=== PATIENT | female | born 1995 | race Caucasian/White ===

== ENCOUNTER 2024-09-27 09:03 | Observation (INO) | payer MEDICAID, SELFPAY ==
[2024-09-27 09:23] VITALS: BP 106/65; PULSE 88
--- NOTE | 2024-09-27 09:45 | XR_ITS ---
Examination: OB Transvaginal ultrasound of the pelvis, Limited Technique: Transvaginal sonographic images pelvis performed using santos scale imaging Exam date and time: September 27, 2024 1051 hours INDICATIONS: Labor evaluation, unknown cervical length FINDINGS: Cervix 3.7 cm closed IMPRESSION: Cervix 3.7 cm closed.
[2024-09-27 09:46] VITALS: BP 106/65; PULSE 88; RESP 16; RESP 96; TEMP 36.4; O2SAT 96; BMI 33.5
--- NOTE | 2024-09-27 11:58 | PC.NURSE ---
Dr Martinez at bedside, speculum exam, amniosure collected and sent, bedside us for marta.
[2024-09-27 12:02] LABS: ROM Kit Lot # 57809118; ROM Swab Mixed By: HILEL; Rupture of Fetal Membranes Negative (Negative); Swb Mxed in Solvent 1 min? Yes
--- NOTE | 2024-09-27 12:16 | PD.LDPN ---
Documentation for date of: 09/27/24 OB Labor Progress Note Assessment and Plan Comments: Triage Note Alyx is a 29yo with SIUP at 32+wk presenting to L&D for slight spotting x2 this morning with wiping. No bright blood, just a faint tinge. She notes no painful/regular ctx, no overt vaginal bleeding. No gross loss of fluid. Normal movement. Current : This is complicated by heart defect for which she sees MFM, pediatric cardiology, and her OBGYN. She also has pre-existing diabetes for which she takes insulin and metformin- she notes sugars have overall been well controlled. She has history of prior section for macrosomia. ROS negative other than what was described above. Vitals wnl, afebrile General: well developed, well nourished, no acute distress, conversant Cardiac: normal heart rate Lungs: breathing without distress Abdomen: soft, gravid, non-tender, no rebound or guarding Extremities: no pain with palpation of calves SSE by Dr. Martinez: NEFG, vaginal discharge is a bit thinner than usual so AmniSure collected. No obvious pooling. Cervix thick/closed. No blood in vaginal vault. NST: Reactive, +accels, no decels, mod [place]: no ctx pattern Bedside ultrasound performed by Dr. Martinez: SIUP with breech presentation ( head in maternal RUQ), +FCA, active FM, posterior placenta, ERIKA 12cm Labs: AmniSure ROM Test: Negative Radiology: Formal transvaginal cervical length: 3.7cm Assessment: Alyx is a 29yo with SIUP at 32+wk with no evidence of PPROM, labor or cervical shortening. Vitals wnl, benign exam. Reassuring status. Plan: -Discussed findings and diagnosis with patient and support person, answered all questions to their apparent satisfaction -Continue routine follow up with OBGYN within 1 week -Discussed return precautions at length. Specifically discussed that if she feels leakage again when she goes home, to place a panty liner or pad on and walk around. If she begins soaking into the liner/pad, she should return. Leslie Martinez MD
== END 2024-09-27 12:15 | disposition home or self-care (01) ==
PROVIDERS: Admitting Provider Obstetrics & Gynecology; PCP Family Medicine; Visit Provider Obstetrics & Gynecology
DX: O26.853 Spotting complicating pregnancy, third trimester (principal); Z3A.32 32 weeks gestation of pregnancy
CPT/HCPCS: 59025; 59899; 76817; 84112

== ENCOUNTER 2024-10-28 10:15 | Observation (INO) | payer MEDICAID, SELFPAY ==
[2024-10-28] VITALS (47 sets, daily range): BP systolic 93–123; BP diastolic 56–88; PULSE 81–163; RESP 18–99; TEMP 36.4; O2SAT 76–99; BMI 33.4
[2024-10-28] MEDS: SODIUM CHLORIDE 0.9% 1000 ML 1,000 ML 999 ML IV (11:03)
[2024-10-28] MEDS: NIFEdipine 10 MG CAPSULE 20 MG PO (11:58)
[2024-10-28 12:08] LABS: Collection Type, Urine Clean Catch
[2024-10-28 13:10] LABS: Bacteria,Urine 3+; Bilirubin,Urine Negative (Negative); Blood,Urine Negative (Negative); Clarity,Urine Turbid (Clear/Hazy); Color,Urine Yellow (Lt Yel-Yel); Glucose, Urine Negative (Negative); Ketones,Urine 2+ (Negative); Leukocyte Esterase,Urine Positive (Negative); Nitrite,Urine Positive (Negative); Protein,Urine Trace (Neg - Trace); RBC,Urine 3 /hpf (0-3); Specific Gravity,Urine 1.024 (1.001-1.035); Squamous Epithelial Cell,Urine 16 /hpf (0-5); Urobilinogen,Urine Negative mg/dL (0.0-1.0); WBC,Urine 4 /hpf (0-5)
[2024-10-28] MEDS: Magnesium Sulfate 4 GM Ivpb 4 GM/50 ML BAG IV (13:57)
[2024-10-28] MEDS: ceFAZolin/D5W 2 GM IV 2 GM/100 ML BAG IV (14:04)
--- NOTE | 2024-10-28 14:10 | XR_ITS ---
Examination: age Limited Technique: Limited transabdominal sonographic images pelvis Exam date and time: October 28, 2024 1443 hrs. Indications: Vomiting diarrhea beginning 3 days ago, pelvic contractions beginning 7:00 AM Findings: Viable intrauterine gestation cephalic presentation spine maternal left Amniotic fluid index 22.3 cm Cardiac motion 153 BPM Estimated weight 3114 g Estimated age 37 weeks 0 days Impression: Viable intrauterine gestation cephalic presentation
[2024-10-28] MEDS: MAGNESIUM SULF 20 GM IVPB 20 GM/500 ML BAG IV ×2 (14:33→15:14)
[2024-10-28 14:34] LABS: Basophils % (Auto) 0 % (0-2.5); Eosinophils % (Auto) 0 % (0-10); Hematocrit 39.6 % (36.0-46.0); Immature Granulocytes % (Auto) 1 % (0-0); Immature Granulocytes Auto 0.06 Thou/mm3 (0.00-0.00); Lymphocytes # (Auto) 1.8 Thou/mm3 (1.0-4.8); Lymphocytes % (Auto) 14 % (10-50); Mean Corpuscular HGB Conc 35.4 g/dl (31.0-37.0); Mean Corpuscular Volume 82 fL (80-100); Monocytes # (Auto) 0.4 Thou/mm3 (0.0-0.8); Monocytes % (Auto) 3 % (0-12); Neutrophils # (Auto) 10.4 Thou/mm3 (1.8-7.7); Neutrophils % (Auto) 82 % (37-80); Nucleated Red Blood Cell % 0 /100 WBC (0); Platelet Count 215 Thou/mm3 (140-440); RDW Standard Deviation 40.2 fL (36.4-46.3); Red Blood Count 4.82 Miln/mm3 (4.00-5.20); White Blood Count 12.7 Thou/mm3 (3.6-11.0)
[2024-10-28 14:49] LABS: Alanine Aminotransferase 24 U/L (10-49); Albumin, Serum 3.6 gm/dL (3.5-5.0); Albumin/Globulin Ratio 1.5 (1.2-2.2); Alkaline Phosphatase 132 U/L (46-116); Anion Gap 13 (7-16); Aspartate Amino Transferase 30 U/L (0-34); BUN/Creatinine Ratio 20 Ratio (12-20); Bilirubin,Total 0.6 mg/dL (0.3-1.2); Blood Urea Nitrogen 10 mg/dL (9-23); Calcium 8.4 mg/dL (8.3-10.6); Calcium (Corrected) 8.7 mg/dL (8.5-10.1); Carbon Dioxide 17.7 mMol/L (20.0-31.0); Chloride 105 mMol/L (98-107); Creatinine (Component) 0.5 mg/dL (0.6-1.3); Estimated Creatinine Clearance 188.2 mL/min (>60); Globulin 2.4 gm/dL (2.3-3.5); Glucose 124 mg/dL (74-106); Magnesium 3.3 mg/dL (1.6-2.6); Osmolality,Calculated 271 (275-295); Potassium 3.7 mMol/L (3.4-5.1); Sodium 136 mMol/L (136-145); eGFR > 60 See Note
[2024-10-28] MEDS: ONDANSETRON INJ 2 MG/ML INJ 2 ML 4 MG IV (14:57)
--- NOTE | 2024-10-28 15:00 | ESDS_ITS ---
Transfer Discharge Sum: Prov Provider Date of admission: 10/28/24 10:15 Primary care physician: López Warner MD Admitting clinician: Marni Haque Consults: consulted Dr Maritza Shin at [facility] for transfer to [facility] due to cardiac anomalies needing higher level NICU Care Attending physician on discharge: Marni Haque Discharging clinician: Marni Haque Anticipated date of transfer: 10/28/24 Receiving physician/facility: Dr Ortega/ Dr Maritza Shin /[facility]/ [place] DS: Diagnosis Discharge Diagnosis (1) Prolonged latent phase of labor: Status: Acute Assessment & Plan: patient has close cervix and mild contractions and started on Magnesium sulphate for transfer (2) 36 to 37 weeks gestation of : Status: Acute Assessment & Plan: transfer for higher level care to [facility] in case of possible delivery (3) Pregestational diabetes mellitus, modified White class C: Status: Acute Assessment & Plan: patient on 10 units NPH and 5 units Regular insulin q am (4) cardiac anomaly complicating , antepartum: Status: Acute (5) Previous delivery affecting , antepartum: Status: Acute Problem List Completed Was Problem List Reviewed/Reconciled?: Yes Transfer Discharge Sum: Hosp Hospital Course Hospital course: Ms. EDGE is a 29 year old female Time Spent with Patient Time attestation: Total time spent providing and/or coordinating transfer services: Exam Vital Signs Temp Pulse Resp BP Pulse Ox 97.5 F 86 18 115/74 97 10/28/24 10:52 10/28/24 14:46 10/28/24 10:52 10/28/24 14:46 10/28/24 14:59 Transfer Discharge Sum: Data Data Completed and Pending Completed studies during hospitalization: Procedures Extraction of Products of Conception, Low, Open Approach (02/15/20) Introduction of Anesthetic Agent into Spinal Canal, Percutaneous Approach (02/15/20) Monitoring of Products of Conception, Cardiac Rate, External Approach (02/15/20) Impressions Impressions: Latent labor but h/o early deliveries at 37 weeks H/o pregest DM h/o previous c section current with cardiac anomalies /recommendd delivery at tertiary care center Additional Comments Additional comments: stable for transfer benfits of transfer are > risk Discharge Plan Problem List Was Problem List Reviewed/Reconciled?: Yes Plan Patient Disposition: Xfer Acute Care [facility] Facility Pt Being Transferred to: [facility] Service Needed for Transfer: Obstetrics Disposition Comment: stable for transfer Patient condition on transfer: Stable and Benefits outweigh risks Prescriptions/Referrals Prescriptions/Med Rec: No Action insulin regular human 100 unit/mL Solution 5 unit SUBCUT QAM insulin NPH isoph U-100 human 100 unit/mL Suspension 10 unit SUBCUT QAM Vitamin 27 mg iron- 0.8 mg Tablet 1 tab PO QDAY Referrals: López Warner MD [Primary Care Provider] - Patient/Caregiver Discharge Instructions Other Discharge Activity Instructions:: transfer with Iv magnesium sulphate 2 grams/hour Other Discharge Diet Instructions: NPO Print Language: [place] Stand Alone Forms: Eva Award Info., Patient Portal Info Letter Discharge Order Discharge Orders: Discharge (Routine); Ordered 10/28/24 Ordered By: Marni Haque
[2024-10-28 15:12] LABS: Glucose Estimated Average 229 mg/dL (80-131); Hemoglobin A1C 9.6 % Hgb (4.8-6.0)
[2024-10-28 16:13] LABS: Magnesium 3.4 mg/dL (1.6-2.6)
--- NOTE | 2024-10-28 17:04 | PC.NURSE ---
1532 CALL MADE TO [facility] , SBAR REPORT GIVEN TO Noman at 1540.
== END 2024-10-28 16:50 | disposition short-term general hospital (02) ==
PROVIDERS: Admitting Provider Obstetrics & Gynecology; PCP Family Medicine; Visit Provider Obstetrics & Gynecology
DX: O24.313 Unspecified pre-existing diabetes mellitus in pregnancy, third trimester (principal); O47.1 False labor at or after 37 completed weeks of gestation; O35.BXX0 Maternal care for other (suspected) fetal abnormality and damage, fetal cardiac anomalies, not applicable or unspecified; O34.219 Maternal care for unspecified type scar from previous cesarean delivery; Z3A.37 37 weeks gestation of pregnancy; E11.9 Type 2 diabetes mellitus without complications; Z79.4 Long term (current) use of insulin
CPT/HCPCS: 36415; 59899; 76815; 80053; 81001; 83036; 83735; 85025; 96374; J0689; J2405; J3475; J7030; A9270

== ENCOUNTER 2024-11-15 17:39 | Emergency (ER) | payer MEDICAID, SELFPAY ==
[2024-11-15 17:50] VITALS: BP 117/78; PULSE 81; RESP 20; TEMP 36.7; O2SAT 100
--- NOTE | 2024-11-15 17:58 | PD.EDADULT ---
ED General RME/HPI General Chief complaint: General Adult/Misc Complain Stated complaint: C. SECTION 8 DAYS AGO, INCISION RED/OPENING/PINEDA Time Seen by Provider: 11/15/24 17:42 Source: patient Arrival date/time: 11/15/24 17:39 29-year-old female with no known medical history presents to the emergency room with a chief complaint of erythema and drainage to the scar. Patient states she recently had a 8 days ago. Mode of arrival: ambulatory Limitations: no limitations Related Data Home Medications ?Medication ?Instructions ?Recorded ?Confirmed insulin NPH isoph U-100 human 100 10 unit subcut QAM 01/02/20 10/28/24 unit/mL subcutaneous suspension insulin regular human 100 unit/mL 5 unit subcut [facility] 01/02/20 10/28/24 injection solution vitamins-iron fumarate 27 1 tab PO QDAY 01/02/20 10/28/24 mg iron-folic acid 0.8 mg tablet ( Vitamin) Previous Rx's ?Medication ?Instructions ?Recorded cephalexin 500 mg capsule 500 mg PO BID 7 days #14 caps 11/15/24 Allergies Allergy/AdvReac Type Severity Reaction Status Date / Time No Known Allergies Allergy Verified 11/15/24 17:43 Review of Systems Review of Systems Systems Reviewed: All systems reviewed, normal except as documented Constitutional Constitutional: Reports system reviewed and no additional complaints, except as documented, Denies fatigue, Denies fever(s), Denies headache(s) and Denies weakness Eyes Eyes: Reports system reviewed and no additional complaints, except as documented, Denies blurry vision and Denies change in vision ENT Ears, Nose, Mouth, and Throat: Reports system reviewed and no additional complaints, except as documented, Denies otalgia, Denies headache(s), Denies nasal congestion, Denies throat swelling and Denies vertigo Cardiovascular Cardiovascular: Reports system reviewed and no additional complaints, except as documented, Denies chest pain, Denies dyspnea and Denies dyspnea on exertion Respiratory Respiratory: Reports system reviewed and no additional complaints, except as documented, Denies chest congestion, Denies cough, Denies dyspnea, Denies dyspnea on exertion and Denies wheezing Gastrointestinal Gastrointestinal: Reports system reviewed and no additional complaints, except as documented, Denies abdominal pain, Denies cramping, Denies nausea and Denies vomiting Genitourinary Genitourinary: Reports system reviewed and no additional complaints, except as documented Musculoskeletal Musculoskeletal: Reports system reviewed and no additional complaints, except as documented and Denies back pain Integumentary/Breasts Skin/Breast: Reports system reviewed and no additional complaints, except as documented and Reports wounds Neurologic Neurologic: Reports system reviewed and no additional complaints, except as documented, Denies confusion, Denies headache(s), Denies lack of coordination, Denies vertigo and Denies weakness Psychiatric Psychiatric: Reports system reviewed and no additional complaints, except as documented, Denies anxiety, Denies confusion, Denies depression, Denies paranoia, Denies suicidal ideation and Denies tactile hallucinations Endocrine Endocrine: Reports system reviewed and no additional complaints, except as documented and Denies fatigue Hematologic/Lymphatic Hematologic/Lymphatic: Reports system reviewed and no additional complaints, except as documented and Denies lymphadenopathy Allergic/Immunologic Allergic/Immunologic: Reports system reviewed and no additional complaints, except as documented, Denies throat swelling, Denies urticaria and Denies wheezing Past Medical History Past Medical History NEUROLOGIC: Negative Neurological Disorders or Seizures CARDIAC: Negative Cardiac Disorders, Congestive Heart Failure or Hypertension RESPIRATORY: Negative Chronic Obstructive Pulmonary Disease (COPD) or Asthma GASTROINTESTINAL: Negative Gastrointestinal Disorders or Hepatitis GENITOURINARY: Negative Genitourinary Disorders or Renal Disease MUSCULOSKELETAL: Negative Musculoskeletal Disorders ENDOCRINE: Positive Endocrine Disorders and Diabetes Mellitus Type 2; Negative Diabetes Mellitus Type 1 HEMATOLOGIC: Negative Blood Disorders or Sickle Cell Disease OTHER HISTORY: Positive Hospitalization; Negative Autoimmune Disease, Shingles, Blood Transfusions, Anesthesia Reactions, MRSA, VRSA, Vancomycin-Resistant Enterococci, Human Immunodeficiency Virus (HIV), Chicken Pox, Measles, Mumps, Rubella (Sinhala Measles), Pertussis, Clostridium Difficile or Cancer Family History FAMILY HISTORY: Positive Family Cancer and Family Surgery; Negative Family Psychiatric Problems, Family Respiratory Disorders, Family Cardiac Disorders, Family Gastrointestinal Problems or Family Anesthesia Reaction Surgical History SURGICAL: Positive Tonsillectomy; Negative Cardiac Surgery Social History SMOKING STATUS: Never smoker SECOND HAND EXPOSURE: No ED Exam General Limitations: Present no limitations General appearance: Present alert and in no apparent distress Head Head exam: Present atraumatic Eye Eye exam: Present normal appearance, PERRL and EOMI ENT ENT exam: Present normal exam, normal oropharynx and mucous membranes moist Neck Neck exam: Present normal inspection, full ROM and trachea midline Chest Chest inspection: Present normal inspection and symmetric chest wall rise Respiratory Respiratory exam: Present normal lung sounds bilaterally Cardiovascular Cardiovascular exam: Present regular rate, normal rhythm and normal heart sounds Abdominal Exam Abdominal exam: Present soft, tenderness, normal bowel sounds and scar Extremities Exam Extremities exam: Present normal inspection and full ROM Back Exam Back exam: Present normal inspection and full ROM Neurological Exam Neurological exam: Present alert, oriented X3 and CN II-XII intact Psychiatric Psychiatric exam: Present normal affect and normal mood Skin Skin exam: Present warm, dry, intact and normal color Expanded Skin Exam Description: Present erythematous; Absent swelling or discharge Body image:  1. There is erythema and very mild warmth to the area. It is to the center of the scar. There is no pus or any opening to the scar. Course Quality Measures none Vital Signs Vital signs: Vital Signs Temperature 98.0 F 11/15/24 17:50 Pulse Rate 81 11/15/24 17:50 Respiratory Rate 20 11/15/24 17:50 Blood Pressure 117/78 11/15/24 17:50 Pulse Oximetry (%) 100 11/15/24 17:50 Oxygen Delivery Method Room Air 11/15/24 17:50 O2 saturation 100% within normal limits MDM Patient data External records reviewed:: [facility] previous records Clinical information provided by:: patient Social determinants that could affect healthcare access:: none Patient has the following chronic illnesses:: No chronic illness How is presenting disease/condition affected by chronic disease/condition?: no chronic disease Evaluation data The following diagnostics were reviewed and interpreted by me:: lab results and radiology exam(s) Lab and/or radiology exams considered but not ordered:: Labs and radiology exams considered and ordered Interpretation Summary: N/A Medications Medications considered but not ordered:: Rx given Medication administrations:: Rx given Consultations Consultation(s) initiated? (list below): No Diagnosis Differential Diagnosis ED Complaint MDM: Cellulitis/ effusion Most likely diagnosis given after review of the tests above:: Cellulitis Admission Indicated Admission indicated?: not indicated Explain why admission is indicated or not indicated:: N/A Admission Request Was there a request for admission?: No Disposition Plan Disposition Plan: Discharge Discharge Attestation Discharge Attestation: The patient and all family members were given an opportunity to ask questions and understood the discharge instructions. Discharge instructions specifically effects, indications for sooner follow up or return to the emergency department, and the expected course of current diagnosis. Patient condition: Stable Medical Decision Making MDM Narrative MDM Narrative: 29-year-old female with no known medical history presents to the emergency room with a chief complaint of erythema and drainage to the scar. Patient states she recently had a 8 days ago. Patient is hemodynamically stable and in no apparent distress. There is no tachycardia no tachypnea and no fever Antibiotics are sent to the patient's pharmacy for cellulitis. There is no drainage and there is just some mild erythema. Antibiotics are sent to the patient's pharmacy Patient was discharged and educated to follow-up with primary care provider in the next 24 to 48 hours and return to the emergency room for any evidence of worsening signs or symptoms Differential Diagnosis Differential Diagnosis: Cellulitis/ effusion Discharge Plan Plan Patient Disposition: HOME (Self Care) Disposition Comment: Stable Prescriptions/Referrals Prescriptions/Med Rec: New cephalexin 500 mg capsule 500 mg PO BID 7 Days Qty: 14 0RF No Action insulin regular human 100 unit/mL Solution 5 unit SUBCUT QAM insulin NPH isoph U-100 human 100 unit/mL Suspension 10 unit SUBCUT QAM Vitamin 27 mg iron- 0.8 mg Tablet 1 tab PO QDAY Problem List Clinical Impression: Cellulitis Patient/Caregiver Discharge Instructions Education Materials: Discharge Instructions for Cellulitis, ED Cellulitis Additional Instructions: Please follow-up with your primary care provider in the next 24 to 48 hours. Antibiotics are sent to your pharmacy please pick them up and take them as indicated. These antibiotics are safe to give even while breast-feeding. For any evidence of worsening signs or symptoms return to the emergency room immediately Print Language: [place] Islander Stand Alone Forms: Eva Award Info., Patient Portal Info Letter PA/THERMAL TECHNICIAN Supervising Physician PA/BARAK Supervising Physician: Dr. PRUITT
== END 2024-11-15 18:20 | disposition home or self-care (01) ==
LOC: SERX 18:43
PROVIDERS: Emergency Provider Emergency Medicine; PCP Family Medicine
DX: O86.09 Infection of obstetric surgical wound, other surgical site (principal)
CPT/HCPCS: 99281